=== PATIENT | male | born 1970 | race Caucasian/White ===

== ENCOUNTER → 2017-02-05 | Outpatient (CLI) | payer BC ==
[~2017-02-05] MED LIST: METF500T4 PO
--- NOTE | 2017-02-05 14:35 | KCIC ---
Examination: Two views the chest HISTORY History of left lower lobe rales, cough for 1 week. COMPARISON None available. Findings: The cardiomediastinal silhouette grossly appears unremarkable. There is is minimal prominence of bilateral perihilar bronchovascular markings appear similar to prior exam. There is no acute infiltrate or visualized pneumothorax identified. IMPRESSION No acute cardiopulmonary findings. Electronically signed by: Isaak Garnett (Feb 05, 2017 14:33:55)
== END | disposition home or self-care (01) ==
LOC: KCIC 11:13
PROVIDERS: ATTEND Family Medicine
DX: R09.89 Other specified symptoms and signs involving the circulatory and respiratory systems (principal); R05 Cough
CPT/HCPCS: 71020

== ENCOUNTER → 2018-03-19 | Outpatient (CLI) | payer BC | END | disposition home or self-care (01) | LOC: KCIC 15:22 | DX: R07.2 Precordial pain (principal) | CPT/HCPCS: 71120 ==

== ENCOUNTER → 2019-12-01 | Outpatient (CLI) | payer OTHER ==
[~2019-12-01] MED LIST changes: +METF500T16 PO; -METF500T4 PO
--- NOTE | 2019-12-01 15:50 | KCIC ---
EXAM: Cervical spine, 7 views. HISTORY: Paresthesia. COMPARISON: None. FINDINGS: 7 views of the cervical spine are obtained. There is no listhesis. There is degenerative endplate remodeling and facet arthropathy at multiple levels. There is suggestion of foraminal stenosis on the left at the lower cervical levels. IMPRESSION: 1. Multilevel degenerative change involving the cervical spine. 2. No acute osseous finding. Electronically signed by: Katlin Smart MD (12/01/2019 3:47 PM) [place] [id number]
== END | disposition home or self-care (01) ==
LOC: KCIC 15:06
PROVIDERS: ATTEND Physician Assistant Medical
DX: M47.812 Spondylosis without myelopathy or radiculopathy, cervical region (principal); M12.88 Other specific arthropathies, not elsewhere classified, other specified site
CPT/HCPCS: 72050

== ENCOUNTER → 2019-12-12 | Outpatient (CLI) | payer OTHER ==
--- NOTE | 2019-12-12 13:01 | KCIC ---
SHOULDER 2+V RIGHT DATE: 12/12/2019 12:00 AM INDICATION: Right shoulder pain COMPARISON: None. FINDINGS: Bones: There is no evidence of acute fracture or dislocation. Joints: The joint spaces are normal. The acromiohumeral distance is not narrowed. Miscellaneous: No abnormal soft tissue calcifications in the shoulder. IMPRESSION: Normal exam Electronically signed by: Kavon Tran MD (12/12/2019 12:58 PM) [id number]
== END | disposition home or self-care (01) ==
LOC: KCIC 11:06
PROVIDERS: ATTEND Physician Assistant Medical
DX: M25.511 Pain in right shoulder (principal)
CPT/HCPCS: 73030

== ENCOUNTER → 2020-01-01 | Outpatient (CLI) | payer OTHER ==
--- NOTE | 2020-01-01 14:50 | KCIC ---
MRI Cervical Spine Without Contrast History: Neck pain, right upper extremity numbness in recent weeks Technique: Multiplanar, multi sequential noncontrast MR imaging was performed of the cervical spine. Comparison: None Findings: There is some motion degradation. Cervical cord caliber is within normal limits without defined or expansile signal abnormality. Accurate evaluation for more subtle cord signal change is limited due to artifact. Intervertebral disc spaces are overall maintained, mild disc desiccation greatest C4-5 and C5-6. There is no significant marrow edema. There is negligible anterior spondylolisthesis C4-5. There is mild diffuse narrowing of the cervical spinal canal on a developmental basis. 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 C2-C3: Neural foramina and spinal canal are adequate. C3-C4: There is very minimal disc osteophyte complex. Central canal is narrowed to about 8 mm. Neural foramina are overall adequate. There is degree of facet degenerative change greater on the right. C4-C5: There is minimal disc osteophyte complex and bulge, central canal narrowed to about 8 mm. There is facet degenerative change bilaterally, also right uncovertebral degenerative change. There is likely mild neural foramina compromise greater on the left. C5-C6: There is minimal disc osteophyte complex and bulge. There is very mild buckling of the ligamentum flavum. Central canal is narrowed to about 7 mm effacement of ventral subarachnoid space. There is a likely small hemangioma of the left paracentral C5 vertebral body, slightly hyperintense on all sequences. There is bilateral facet hypertrophic change, also likely degree of right uncovertebral degenerative change. Accurate characterization of the neural foramina is limited due to motion, probable moderate left and at least [id number] right neural foramina compromise. C6-C7: There is negligible disc osteophyte complex. Central canal is significantly narrowed about 9 mm. There is facet degenerative change bilaterally. There is uncovertebral degenerative change greater on the right. Accurate characterization of the neural foramina is limited, likely at least [id number] right and mild left neural foramina compromise. C7-T1: Spinal canal and neural foramina are adequate. There is right uncovertebral degenerative change. Impression: 1. There is somewhat diffuse narrowing of the cervical spinal canal on a developmental basis, central canal stenosis at C5-6 about 7 mm and to a lesser degree at C3-4, C4-5, and C6-7 as described. 2. Multilevel facet degenerative change contributes to neural foramina compromise although difficult to accurately characterize the neural foramina as described, probable neural foramina compromise greatest bilaterally at C5-6 and right greater than left at C6-7. Electronically signed by: Kavon Weston MD (01/01/2020 2:47 PM) [id number]
== END | disposition home or self-care (01) ==
LOC: KCIC MRI 13:31
PROVIDERS: ATTEND Physician Assistant Medical
DX: M47.22 Other spondylosis with radiculopathy, cervical region (principal); M48.02 Spinal stenosis, cervical region; M25.78 Osteophyte, vertebrae; M89.38 Hypertrophy of bone, other site; M47.814 Spondylosis without myelopathy or radiculopathy, thoracic region
CPT/HCPCS: 72141

== ENCOUNTER → 2021-09-09 | Outpatient (CLI) | payer OTHER ==
--- NOTE | 2021-09-09 17:03 | KCIC ---
Exam Date: 09/09/2021 8:00 AM MRI RIGHT UPPER EXTREMITY JOINT WITHOUT CONTRAST Indication: Reason: PAIN IN RIGHT SHOULDER / Spl. Instructions: / History: Right shoulder pain for y rs. Scottisone one yr ago, no surgical hx.. TECHNIQUE: Routine multiplanar MR imaging of the shoulder was performed without contrast. COMPARISON: Radiographs from December 12, 2019 Images from prior exam dated January 26, 2010 are not darien ilable for comparison. FINDINGS: Increased signal in the supraspinatus tendon is consistent with tendinopathy. No full-thickness rotator cuff tendon tear is identified. The supraspinatus, infraspinatus, teres mi nor and subscapularis tendons are intact. Rotator cuff musculature demonstrates normal signal and bu lk. Mild to moderate degenerative changes are seen at the AC joint. There is an intact type II acromion. No significant fluid is seen in the subacromial/subdeltoid bursa. Long head of the biceps tendon is intact. Labrum demonstrates grossly normal signal and morphology, though lack of intra-articular contrast limits evaluation. No large full-thickness chondral defect is seen at the glenohumeral joint. Bone marrow demonstrates benign signal on all sequences without acute fracture. IMPRESSION: Supraspinatus tendinopathy without full-thickness rotator cuff tendon tear. Electronically signed by: Robert Vinson MD (09/09/2021 5:01 PM) [id number]
== END ==
LOC: KCIC MRI 07:50
PROVIDERS: ATTEND Physician Assistant Medical
DX: M25.511 Pain in right shoulder (principal)
CPT/HCPCS: 73221